=== PATIENT | female | born 1955 | race Caucasian/White ===

== ENCOUNTER → 2017-05-02 | Outpatient (CLI) | payer OTHER ==
[~2017-05-02] MED LIST: ACETAMINOPHEN500 M1 PO; ADVIL200 M1 PO; BACTRIM DS1 TAB PO; CRANBERRY500 M1 PO; FLOMAX0.4 MG PO; NORCO 5-325 MG1 TAB PO; TYLENOL/COD#31 TAB PO
== END | disposition disaster alternative care site (69) ==
LOC: GRAD 09:42
DX: R51 Headache (principal)

== ENCOUNTER 2017-05-14 14:36 | Emergency (ER) | payer OTHER ==
--- NOTE | ~2017-05-14 | ER ---
PATIENT'S NAME: NANCY CHANG [facility] AGE: 61 Y [address] ROOM: [place] [address] LOCATION: [facility] ADMIT DATE: 05/14/2017 ER/Outpatient Report DISCHARGE DATE: 05/14/2017 FAMILY PHYSICIAN: Armando Pagan MD ATTENDING PHYSICIAN: Jen Anthony SEEN AT: 1445 hours. CHIEF COMPLAINT: Headache. HISTORY OF PRESENT ILLNESS: The patient is a 61-year-old female, a patient of Dr. Pagan. The patient recently had been diagnosed with cluster headaches. She said she has had a previous MRI, which has been normal. The patient has treatment, has been on prednisone, which she just recently stopped. She has also been using Imitrex injections. The patient says that the Imitrex does help; however, today, she was out of Imitrex, so she went to the Pharmacy and they refused to refill the Imitrex because of some insurance issues. The patient did state she took Imitrex injection on Monday about 02:30 and then last night about 12. The patient denies any nausea, vomiting, or visual disturbance. ALLERGIES: NO MEDICINAL ALLERGIES. HOME MEDICATIONS: See her copied list. MEDICAL HISTORY: Recent diagnosis of cluster headaches. SURGERIES: She has had back surgery. SOCIAL HISTORY: Smoker, one pack a day. Denies alcohol. REVIEW OF SYSTEMS: GENERAL: No fevers or chills. HEAD/EENT: Headache has been mostly on her left side. She denied any nasal discharge, sore throat, or stiff neck. NEURO: No photophobia. Denies any numbness or tingling to her extremities. PHYSICAL EXAMINATION: PATIENT'S NAME: NANCY CHANG [facility] AGE: 61 Y [address] ROOM: [place] [address] LOCATION: [facility] ADMIT DATE: 05/14/2017 ER/Outpatient Report DISCHARGE DATE: 05/14/2017 FAMILY PHYSICIAN: Armando Pagan MD ATTENDING PHYSICIAN: Jen Anthony VITAL SIGNS: Her blood pressure was 151/69, her temperature was 97.3, her respiratory rate 18, pulse 77, and her O2 saturations 95%. GENERAL APPEARANCE: She did appear to be in obvious pain, alert and oriented. HEAD/EENT: No temporal tenderness. Pupils were small, but equal and reactive. She had no cervical tenderness. NEURO: She was well oriented. Her speech was clear. Gait appeared normal. ASSESSMENT: Headache. PLAN: Since she has had the Imitrex 2 injections in the last 24 hours, we will hold that. We did give her Toradol 60 IM and Phenergan 50. Recommend she go home, find a quiet dark room, and try to sleep. Follow up with family practice tomorrow if headache does not improve. JYOTI ARNDT FOR MD PEDRO ZIMMER/glenis /[id number] d: 05/14/170 t: 05/22/17 1209, OUTPATIENT REPORT
== END 2017-05-14 15:26 | disposition disaster alternative care site (69) ==
LOC: GMED 14:36
DX: R51 Headache (principal); F17.210 Nicotine dependence, cigarettes, uncomplicated; Z98.890 Other specified postprocedural states; Z79.899 Other long term (current) drug therapy
CPT/HCPCS: J1885; J2550